=== PATIENT | male | born 1995 | race Two or more races ===

== ENCOUNTER 2018-07-07 12:13 | Outpatient (CLI) | payer OTHER | END 2018-07-07 14:32 | disposition home or self-care (01) | LOC: MRI 12:13 | DX: G93.89 Other specified disorders of brain (principal) | CPT/HCPCS: 70551 ==

== ENCOUNTER 2018-08-06 08:48 | Outpatient (CLI) | payer OTHER | END 2018-08-06 10:18 | disposition home or self-care (01) | LOC: RAD 501 08:48 | DX: M25.571 Pain in right ankle and joints of right foot (principal) ==

== ENCOUNTER → 2019-02-25 | Outpatient (CLI) | payer OTHER | END | disposition home or self-care (01) | LOC: RAD 14:36 | DX: R05 Cough (principal) ==